=== PATIENT | female | born 1980 | race Caucasian/White ===

== ENCOUNTER 2018-08-09 20:06 | Emergency (ER) | payer OTHER ==
[~2018-08-09] VITALS: Ht 170.2 cm; Wt 97.5 kg
[~2018-08-09 20:06] MED LIST: ALBUTEROL2.5 MG/0.5 INH; AZITHROMYCIN 2250 MG PO; DICLOFENAC SODI75 MG PO; KLOR-CON 1010 MEQ PO; NORCO 5-325 TA1 EACH PO; PENICILLIN V P500 MG PO; PERIDEX 0.12%473 M1 SSP; PREDNISONE 20 M20 MG PO
[2018-08-09 20:22] LABS: URINE BILIRUBIN NEGATIVE (Negative); URINE BLOOD 2+ (Negative); URINE CLARITY CLOUDY; URINE COLOR YELLOW; URINE GLUCOSE-RANDOM* NEGATIVE (Negative); URINE KETONES NEGATIVE (Negative); URINE PROTEIN (DIPSTICK) NEGATIVE (Negative); URINE UROBILINOGEN 0.2 E.U./dl (0.2-1.0)
[2018-08-09 20:23] LABS: URINE LEUKOCYTES-REFLEX 3+ (Negative); URINE NITRITE-REFLEX POSITIVE (Negative)
[2018-08-09 20:29] LABS: ABSOLUTE NEUTROPHILS 4.3 thou/uL (1.4-8.2); BASOPHILS 0.8 % (0.0-2.0); EOSINOPHILS 3.4 % (0.0-3.0); HEMATOCRIT 39.5 % (37.0-47.0); HEMOGLOBIN 14.1 gm/dL (12.0-15.0); LYMPHOCYTES 34.7 % (24.0-44.0); MCHC 35.6 g/dL (28.0-37.0); MCV 87.1 fL (80.0-100.0); MONOCYTES 7.8 % (1.0-8.0); PLATELET COUNT 330 thou/uL (150-400); POLYS 53.3 % (36.0-66.0); RBC 4.54 mil/uL (4.20-5.00); RDW 14.5 % (10.5-14.5)
[2018-08-09 20:36] LABS: CALCIUM 9.2 mg/dL (8.5-10.1); CREATININE 0.8 mg/dL (0.6-1.0)
[2018-08-09 20:39] LABS: POTASSIUM 2.9 mmol/L (3.5-5.1)
[2018-08-09 20:42] LABS: ALBUMIN 3.3 g/dL (3.4-5.0); TOTAL BILIRUBIN 0.3 mg/dL (<0.1-1.0); TOTAL PROTEIN 7.2 g/dL (6.4-8.2)
[2018-08-09 20:46] LABS: CASTS None Seen /LPF (None Seen); SQUAMOUS 0-3 Few /LPF (0-3); URINE WBC-REFLEX >25 Many /HPF (0-5)
[2018-08-09 20:47] LABS: AMORPHOUS URATES Few /LPF (None Seen); BACTERIA-REFLEX >30 Many /HPF (None Seen); CRYSTALS None Seen /LPF (None Seen); MUCUS 0-3 Light strn/LPF (None Seen); URINE RBC 3-10 Few /HPF (0-2); WBC CLUMPS Occasional (None Seen)
[2018-08-09] MEDS ORDERED: KLOR-CON 1010 MEQ PO (21:37)
[2018-08-09] MEDS ORDERED: KEFLEX500 M1 PO (21:38)
[2018-08-09] MEDS ORDERED: NORCO 5-325 TA1 EACH PO (22:04)
[2018-08-09 22:05] VITALS: BP 108/66
== END 2018-08-09 22:08 | disposition home or self-care (01) ==
LOC: ER 20:06
PROVIDERS: Emergency Medicine
DX: N39.0 Urinary tract infection, site not specified (principal); E87.6 Hypokalemia; R11.10 Vomiting, unspecified; F17.210 Nicotine dependence, cigarettes, uncomplicated; Z88.5 Allergy status to narcotic agent; Z88.6 Allergy status to analgesic agent

== ENCOUNTER 2018-12-18 10:51 | Emergency (ER) | payer OTHER ==
[~2018-12-18] VITALS: Ht 170.2 cm; Wt 88.5 kg
[~2018-12-18 10:51] MED LIST changes: +KEFLEX500 M1 PO
[2018-12-18] MEDS ORDERED: TESSALON PERLE100 MG PO (12:02)
[2018-12-18] MEDS ORDERED: DOXYCYCLINE 10100 MG PO (12:02)
[2018-12-18] MEDS ORDERED: FLONASE 0.05%50 MCG NASAL (12:02)
[2018-12-18 12:11] VITALS: BP 106/75
== END 2018-12-18 12:12 | disposition home or self-care (01) ==
LOC: ER 10:51
DX: J18.9 Pneumonia, unspecified organism (principal); J06.9 Acute upper respiratory infection, unspecified; H92.03 Otalgia, bilateral; F17.210 Nicotine dependence, cigarettes, uncomplicated; Z88.5 Allergy status to narcotic agent; Z88.8 Allergy status to other drugs, medicaments and biological substances

== ENCOUNTER 2019-03-09 21:21 | Emergency (ER) | payer OTHER ==
[~2019-03-09] VITALS: Ht 170.2 cm; Wt 93.0 kg
[~2019-03-09 21:21] MED LIST changes: +DOXYCYCLINE 10100 MG PO; +FLONASE 0.05%50 MCG NASAL; +TESSALON PERLE100 MG PO
[2019-03-09 22:09] LABS: URINE BILIRUBIN NEGATIVE (Negative); URINE BLOOD 1+ (Negative); URINE CLARITY SL CLOUDY; URINE COLOR YELLOW; URINE GLUCOSE-RANDOM* NEGATIVE (Negative); URINE KETONES NEGATIVE (Negative); URINE PROTEIN (DIPSTICK) NEGATIVE (Negative); URINE SPECIFIC GRAVITY <= 1.005 (1.005-1.035); URINE UROBILINOGEN 0.2 E.U./dl (0.2-1.0)
[2019-03-09 22:13] LABS: URINE LEUKOCYTES-REFLEX 3+ (Negative); URINE NITRITE-REFLEX POSITIVE (Negative)
[2019-03-09 22:17] LABS: BACTERIA-REFLEX >30 Many /HPF (None Seen); CASTS None Seen /LPF (None Seen); CRYSTALS None Seen /LPF (None Seen); MUCUS 0-3 Light strn/LPF (None Seen); SQUAMOUS >10 Many /LPF (0-3); URINE WBC-REFLEX >25 Many /HPF (0-5)
[2019-03-09] MEDS ORDERED: VALIUM5 MG PO (23:19)
[2019-03-09 23:57] VITALS: BP 92/54
== END 2019-03-09 23:59 | disposition home or self-care (01) ==
LOC: ER 21:21
PROVIDERS: Physician Assistant
DX: R25.2 Cramp and spasm (principal); M54.6 Pain in thoracic spine; F32.9 Major depressive disorder, single episode, unspecified; F17.210 Nicotine dependence, cigarettes, uncomplicated; Z88.5 Allergy status to narcotic agent; Z88.8 Allergy status to other drugs, medicaments and biological substances

== ENCOUNTER 2019-06-12 19:37 | Emergency (ER) | payer OTHER ==
[~2019-06-12] VITALS: Ht 170.2 cm; Wt 104.3 kg
[~2019-06-12 19:37] MED LIST changes: +VALIUM5 MG PO
[2019-06-12 20:09] LABS: URINE BILIRUBIN NEGATIVE (Negative); URINE BLOOD 1+ (Negative); URINE CLARITY CLEAR; URINE COLOR YELLOW; URINE GLUCOSE-RANDOM* NEGATIVE (Negative); URINE KETONES NEGATIVE (Negative); URINE LEUKOCYTES 2+ (Negative); URINE NITRITE NEGATIVE (Negative); URINE PROTEIN (DIPSTICK) NEGATIVE (Negative); URINE SPECIFIC GRAVITY <= 1.005 (1.005-1.035); URINE UROBILINOGEN 0.2 E.U./dl (0.2-1.0)
[2019-06-12 20:17] LABS: CASTS None Seen /LPF (None Seen); CRYSTALS None Seen /LPF (None Seen); SQUAMOUS 4-10 Moderate /LPF (0-3); URINE RBC 0-2 Rare /HPF (0-2); URINE WBC 6-15 Few /HPF (0-5)
[2019-06-12 20:28] LABS: ABSOLUTE NEUTROPHILS 5.8 thou/uL (1.4-8.2); BASOPHILS 0.5 % (0.0-2.0); EOSINOPHILS 2.5 % (0.0-3.0); HEMATOCRIT 39.5 % (37.0-47.0); HEMOGLOBIN 13.7 gm/dL (12.0-15.0); LYMPHOCYTES 20.3 % (24.0-44.0); MCH 30.7 pg (26.0-34.0); MCHC 34.8 g/dL (28.0-37.0); MCV 88.2 fL (80.0-100.0); MONOCYTES 6.4 % (1.0-8.0); PLATELET COUNT 335 thou/uL (150-400); POLYS 70.3 % (36.0-66.0); RBC 4.48 mil/uL (4.20-5.00); RDW 13.7 % (10.5-14.5); WBC 8.3 thou/uL (4.0-11.0)
[2019-06-12 20:33] LABS: CALCIUM 9.1 mg/dL (8.5-10.1); CREATININE 0.7 mg/dL (0.6-1.0)
[2019-06-12 20:39] LABS: ALBUMIN 3.3 g/dL (3.4-5.0); TOTAL BILIRUBIN 0.3 mg/dL (<0.1-1.0); TOTAL PROTEIN 7.3 g/dL (6.4-8.2)
[2019-06-12] MEDS ORDERED: KLOR-CON 1010 MEQ PO (21:26)
[2019-06-12] MEDS ORDERED: PRILOSEC OTC20 MG PO (21:26)
[2019-06-12] MEDS ORDERED: KEFLEX500 M1 PO (21:26)
[2019-06-12 21:41] VITALS: BP 114/77
--- NOTE | 2019-06-13 08:47 | EKG ---
[address] [address] ELECTROCARDIOGRAM REPORT Name: CHICA FERNANDEZ [id number] ������������������ Admission: 06/12/19 ������������������ Attend Phys: Discharge: 06/12/19 ������������������ Date of : 76 Report #: [id number] ����������������������������������������������������������������� [id number] THIS REPORT FOR: //name// [facility] ED Test Date: 2019-06-12 Test Time: 19:54:46 Pat Name: CHICA FERNANDEZ Department: Room: Gender: F Crnp: KORI : 1980 Requested By: Geovanny Rondon Order Number: [id number] MD: Guy Flaherty Measurements Intervals [place] Rate: 74 P: 31 ID: 132 QRS: 86 QRSD: 89 T: 68 QT: 386 QTc: 429 Interpretive Statements Sinus rhythm Normal tracing Compared to ECG 04/18/2017 21:55:36 No significant changes Electronically Signed On 06-13-2019 8:47:15 CDT by Guy Flaherty [email or web address] ��������������������������������������������� <ELECTRONICALLY SIGNED> ���������������������������������������� By: Guy Flaherty MD, [facility] ��������������������������������������������� 06/13/19 0847 [id number] Guy Flaherty MD, FACC /EPI
== END 2019-06-12 21:41 | disposition home or self-care (01) ==
LOC: ER 19:37
PROVIDERS: Emergency Medicine
DX: N39.0 Urinary tract infection, site not specified (principal); R10.11 Right upper quadrant pain; R10.31 Right lower quadrant pain; F17.210 Nicotine dependence, cigarettes, uncomplicated; Z88.5 Allergy status to narcotic agent; Z88.6 Allergy status to analgesic agent; Z98.51 Tubal ligation status

== ENCOUNTER 2019-08-08 22:42 | Emergency (ER) | payer OTHER ==
[~2019-08-08] VITALS: Ht 170.2 cm; Wt 93.0 kg
[~2019-08-08 22:42] MED LIST changes: +PRILOSEC OTC20 MG PO
[2019-08-08] MEDS ORDERED: AUGMENTIN 875-1 EACH PO (23:52)
[2019-08-08] MEDS ORDERED: VENTOLIN HFA 1818 GM INH (23:52)
[2019-08-09 00:11] VITALS: BP 141/90
== END 2019-08-09 00:13 | disposition home or self-care (01) ==
LOC: ER 22:42
DX: J18.9 Pneumonia, unspecified organism (principal); J06.9 Acute upper respiratory infection, unspecified; F32.9 Major depressive disorder, single episode, unspecified; F17.210 Nicotine dependence, cigarettes, uncomplicated; Z88.5 Allergy status to narcotic agent; Z88.6 Allergy status to analgesic agent

== ENCOUNTER 2021-03-31 13:58 | Emergency (ER) | payer OTHER ==
[~2021-03-31] VITALS: Ht 170.2 cm; Wt 97.5 kg
[~2021-03-31 13:58] MED LIST changes: +AUGMENTIN 875-1 EACH PO; +VENTOLIN HFA 1818 GM INH
[2021-03-31 14:34] LABS: URINE BILIRUBIN NEGATIVE (Negative); URINE BLOOD 2+ (Negative); URINE COLOR YELLOW; URINE GLUCOSE-RANDOM* NEGATIVE (Negative); URINE KETONES NEGATIVE (Negative); URINE PROTEIN (DIPSTICK) NEGATIVE (Negative); URINE UROBILINOGEN 0.2 E.U./dl (0.2-1.0)
[2021-03-31 14:36] LABS: URINE LEUKOCYTES-REFLEX 3+ (Negative); URINE NITRITE-REFLEX POSITIVE (Negative)
[2021-03-31 14:37] LABS: URINE CLARITY HAZY
[2021-03-31 14:42] LABS: SQUAMOUS >10 Many /LPF (0-3)
[2021-03-31 14:43] LABS: BACTERIA-REFLEX >30 Many /HPF (None Seen); CASTS None Seen /LPF (None Seen); CRYSTALS None Seen /LPF (None Seen); URINE RBC 3-10 Few /HPF (NONE SEEN); YEAST-REFLEX Present (None Seen)
[2021-03-31 15:00] LABS: ABSOLUTE NEUTROPHILS 3.5 thou/uL (1.4-8.2); EOSINOPHILS 2.1 % (0.0-3.0); HEMATOCRIT 40.7 % (37.0-47.0); LYMPHOCYTES 28.7 % (24.0-44.0); MCHC 34.4 g/dL (28.0-37.0); MCV 87.2 fL (80.0-100.0); MONOCYTES 8.6 % (1.0-8.0); PLATELET COUNT 272 thou/uL (150-400); POLYS 59.6 % (36.0-66.0); RBC 4.67 mil/uL (4.20-5.00); RDW 13.5 % (10.5-14.5); WBC 5.9 thou/uL (4.0-11.0)
[2021-03-31 15:09] LABS: ANION GAP 8 mmol/L (7-16); BUN 6 mg/dL (7-18); CHLORIDE 102 mmol/L (98-107); CO2 30 mmol/L (21-32); CREATININE 0.9 mg/dL (0.6-1.0); GLUCOSE 106 mg/dL (74-106); POTASSIUM 3.1 mmol/L (3.5-5.1); SODIUM 140 mmol/L (136-145)
[2021-03-31 15:19] LABS: ALBUMIN 3.3 g/dL (3.4-5.0); LIPASE 81 U/L (73-393); SGOT 20 U/L (15-37); SGPT 31 U/L (30-65); TOTAL BILIRUBIN 0.4 mg/dL (0.2-1.0); TOTAL PROTEIN 7.2 g/dL (6.4-8.2); TROPONIN-I <0.06 ng/mL (<0.06)
[2021-03-31] MEDS ORDERED: POTASSIUM20 PO (16:34)
[2021-03-31 16:41] VITALS: BP 127/82
--- NOTE | 2021-03-31 17:36 | EKG ---
[place] [address] [facility] [employer] [address] ELECTROCARDIOGRAM REPORT Name: CHICA FERNANDEZ [facility] [id number] Admission: 03/31/21 Attend Phys: Discharge: 03/31/21 Date of : 76 Report #: [id number] [facility] ED Test Date: 2021-03-31 Test Time: 14:14:51 Pat Name: CHICA FERNANDEZ Department: Room: Gender: F [employer]: [place] : 1980 Requested By: Chris Parish Order Number: [id number] MD: Guy Flaherty Measurements Intervals [place] Rate: 76 P: 19 [place]: 119 QRS: 83 QRSD: 104 T: 57 QT: 394 QTc: 444 Interpretive Statements Sinus rhythm No significant abnormality Compared to ECG 06/12/2019 19:54:46 No significant change was found Electronically Signed On 03-31-2021 17:36:26 CDT by Guy Flaherty [email or web address] <ELECTRONICALLY SIGNED> By: Guy Flaherty MD, [facility] 03/31/21 1736 1414 1414 Guy Flaherty MD, FACC /EPI
[2021-04-03] MEDS ORDERED: CEPHALEXIN500 MG PO (10:49)
== END 2021-03-31 16:42 | disposition home or self-care (01) ==
LOC: ER 13:58
PROVIDERS: Emergency Medicine
DX: R07.89 Other chest pain (principal); R20.2 Paresthesia of skin; E87.6 Hypokalemia; E27.8 Other specified disorders of adrenal gland; R10.13 Epigastric pain; F17.210 Nicotine dependence, cigarettes, uncomplicated; Z88.5 Allergy status to narcotic agent; Z88.6 Allergy status to analgesic agent; Z79.899 Other long term (current) drug therapy; Z98.51 Tubal ligation status

== ENCOUNTER 2021-12-31 13:21 | Emergency (ER) | payer OTHER ==
[~2021-12-31] VITALS: Ht 170.2 cm; Wt 97.5 kg
[~2021-12-31 13:21] MED LIST changes: +CEPHALEXIN500 MG PO; +POTASSIUM20 PO
[2021-12-31 14:38] LABS: HEMATOCRIT 38.9 % (37.0-47.0); HEMOGLOBIN 13.6 gm/dL (12.0-15.0); MCH 30.7 pg (26.0-34.0); MCV 87.5 fL (80.0-100.0); RBC 4.45 mil/uL (4.20-5.00); WBC 7.4 thou/uL (4.0-11.0)
[2021-12-31 14:39] LABS: URINE BILIRUBIN NEGATIVE (Negative); URINE BLOOD TRACE (Negative); URINE CLARITY CLEAR; URINE GLUCOSE-RANDOM* NEGATIVE (Negative); URINE KETONES NEGATIVE (Negative); URINE NITRITE-REFLEX NEGATIVE (Negative); URINE PROTEIN (DIPSTICK) NEGATIVE (Negative); URINE UROBILINOGEN 0.2 E.U./dl (0.2-1.0)
[2021-12-31 14:43] LABS: URINE COLOR STRAW; URINE LEUKOCYTES-REFLEX 2+ (Negative)
[2021-12-31 14:52] LABS: CALCIUM 9.3 mg/dL (8.5-10.1); CREATININE 0.8 mg/dL (0.6-1.0); POTASSIUM 3.2 mmol/L (3.5-5.1)
[2021-12-31 14:53] LABS: SQUAMOUS >10 Many /LPF (0-3)
[2021-12-31 14:54] LABS: BACTERIA-REFLEX >30 Many /HPF (None Seen); URINE RBC 1-2 Rare /HPF (NONE SEEN); URINE WBC-REFLEX 6-15 Few /HPF (0-5)
[2021-12-31 14:56] LABS: CASTS None Seen /LPF (None Seen); CRYSTALS None Seen /LPF (None Seen); YEAST-REFLEX Present (None Seen)
[2021-12-31 15:00] LABS: ALBUMIN 3.7 g/dL (3.4-5.0); TOTAL BILIRUBIN 0.2 mg/dL (0.2-1.0); TOTAL PROTEIN 7.2 g/dL (6.4-8.2)
--- NOTE | 2021-12-31 15:16 | EKG ---
[address] [place] [address] ELECTROCARDIOGRAM REPORT Name: CHICA FERNANDEZ Room #: [facility]#: [id number] Admission: 12/31/21 Attend Phys: Discharge: Date of : 76 Report #: [id number] [facility] ED Test Date: 2021-12-31 Test Time: 13:30:35 Pat Name: CHICA FERNANDEZ Department: Room: Gender: F Studio Designer: KELLEY : 1980 Requested By: Jazzmine Edouard Order Number: [id number] MD: Waqas Coronel Measurements Intervals [place] Rate: 87 P: 73 CA: 142 QRS: 95 QRSD: 85 T: 67 QT: 364 QTc: 438 Interpretive Statements Sinus rhythm Borderline right axis deviation Compared to ECG 03/31/2021 14:14:51 No significant changes Electronically Signed On 12-31-2021 15:16:05 PRODUCT MARKETING DIRECTOR by Waqas Coronel [email or web address] <ELECTRONICALLY SIGNED> By: Waqas Coronel MD, [facility] 12/31/21 1516 1330 1330 Waqas Coronel MD, FACC /EPI
[2021-12-31] MEDS ORDERED: DIFLUCAN150 M1 PO (15:59)
[2021-12-31] MEDS ORDERED: CEPHALEXIN500 MG PO (15:59)
[2021-12-31 16:31] VITALS: BP 133/84
== END 2021-12-31 16:41 | disposition home or self-care (01) ==
LOC: ER 13:21
PROVIDERS: Nurse Practitioner Family
DX: N39.0 Urinary tract infection, site not specified (principal); R07.89 Other chest pain; E87.6 Hypokalemia; F32.9 Major depressive disorder, single episode, unspecified; F17.210 Nicotine dependence, cigarettes, uncomplicated; Z98.51 Tubal ligation status; Z86.16 Personal history of COVID-19; Z79.899 Other long term (current) drug therapy; Z79.51 Long term (current) use of inhaled steroids; Z88.5 Allergy status to narcotic agent; Z88.6 Allergy status to analgesic agent